=== PATIENT | female | born 1965 | race Caucasian/White ===

== ENCOUNTER 2017-01-14 17:42 | Emergency (ER) | payer OTHER ==
[2017-01-14 19:21] LABS: HEMOGLOBIN 15.9 gm/dl (12.3-15.3); RED BLOOD COUNT 5.12 M/UL (4.00-5.10); WHITE BLOOD COUNT 8.6 K/UL (4.5-11.0)
[2017-01-14 19:56] LABS: BUN/CREATININE RATIO 10 (0-10)
== END 2017-01-14 23:55 | disposition home or self-care (01) ==
LOC: ER1 17:42
PROVIDERS: Emergency Medicine
DX: K80.70 Calculus of gallbladder and bile duct without cholecystitis without obstruction (principal); Z88.1 Allergy status to other antibiotic agents
CPT/HCPCS: 36415; 80053; 81001; 83690; 84703; 85025; 96374; 96375; 99284; J1885; J2270; J2405

== ENCOUNTER → 2017-01-16 | Outpatient (CLI) | payer OTHER | LOC: KOH-I 10:52 | DX: R10.11 Right upper quadrant pain (principal); K80.20 Calculus of gallbladder without cholecystitis without obstruction; Z88.1 Allergy status to other antibiotic agents | CPT/HCPCS: 76705 ==

== ENCOUNTER 2017-03-01 10:23 | Emergency (ER) | payer OTHER | END 2017-03-01 11:30 | disposition home or self-care (01) | LOC: ER1 10:23 | DX: K05.219 Aggressive periodontitis, localized, unspecified severity (principal); Z88.2 Allergy status to sulfonamides; Z88.0 Allergy status to penicillin; Z88.6 Allergy status to analgesic agent | CPT/HCPCS: 99283 ==

== ENCOUNTER → 2020-12-20 | Outpatient (CLI) | payer OTHER ==
[~2020-12-20] MED LIST: ALLEGRA-D 24 H1 EACH PO; COMBIVENT RESPIM4 GM INH; DOXYCYCLINE HY100 M2 PO; GABAPENTIN600 MG PO; HYDROCODON-ACE1 EAC4 PO; IBUPROFEN600 MG PO; KLONOPIN TAB 00.5 MG PO; LIORESAL TAB 1010 MG PO; MELATONIN5 M2 PO; NORCO 5-325 TA1 EACH PO; OMEPRAZOLE20 M1 PO; OMNICEF 300 MG300 MG PO; SPIRIVA HANDIH18 MCG INH; SYMBICORT 16010.2 GM INH; VENTOLIN HFA 66.7 GM INH; VITAMIN D21250 MCG PO
== END ==
LOC: KOH-I 08:04
DX: S82.832D Other fracture of upper and lower end of left fibula, subsequent encounter for closed fracture with routine healing (principal); X58.XXXD Exposure to other specified factors, subsequent encounter
CPT/HCPCS: 71046; 73610

== ENCOUNTER → 2021-03-19 | Outpatient (CLI) | payer OTHER | LOC: KOH-I 10:33 | DX: S82.402D Unspecified fracture of shaft of left fibula, subsequent encounter for closed fracture with routine healing (principal) | CPT/HCPCS: 73610 ==

== ENCOUNTER → 2021-11-13 | Outpatient (CLI) | payer OTHER | LOC: KOH-I 09:44 | DX: M25.511 Pain in right shoulder (principal); M19.011 Primary osteoarthritis, right shoulder | CPT/HCPCS: 73030 ==

== ENCOUNTER → 2022-01-01 | Outpatient (CLI) | payer OTHER | LOC: KOH-I 10:29 | DX: M54.2 Cervicalgia (principal); F17.210 Nicotine dependence, cigarettes, uncomplicated; M54.6 Pain in thoracic spine; M54.50 Low back pain, unspecified; M25.561 Pain in right knee; M25.562 Pain in left knee; M47.816 Spondylosis without myelopathy or radiculopathy, lumbar region; M47.812 Spondylosis without myelopathy or radiculopathy, cervical region | CPT/HCPCS: 72040; 72070; 72100; 73562 ==

== ENCOUNTER → 2022-01-28 | Outpatient (CLI) | payer OTHER | LOC: KOH-I 13:41 | DX: S82.832D Other fracture of upper and lower end of left fibula, subsequent encounter for closed fracture with routine healing (principal) | CPT/HCPCS: 73610 ==